=== PATIENT | male | born 1950 | race Caucasian/White ===

== ENCOUNTER 2018-06-18 11:55 | Emergency (ER) | payer SELFPAY ==
[2018-06-18] MEDS: OXYCODONE/ACETAMINOPHEN (10/325) TAB PO (13:42)
== END 2018-06-18 15:16 | disposition home or self-care (01) ==
LOC: FTE 11:55
DX: M25.551 Pain in right hip (principal); F17.210 Nicotine dependence, cigarettes, uncomplicated
CPT/HCPCS: 99283

== ENCOUNTER 2018-07-01 17:19 | Emergency (ER) | payer SELFPAY ==
[2018-07-01] MEDS: HYDROCODONE/APAP (5/325) TAB PO (18:11)
== END 2018-07-01 19:00 | disposition home or self-care (01) ==
LOC: FTE 17:19
DX: M25.551 Pain in right hip (principal); G89.29 Other chronic pain
CPT/HCPCS: 99283

== ENCOUNTER 2018-07-15 12:52 | Emergency (ER) | payer MEDICARE, OTHER ==
[2018-07-15] MEDS: OXYCODONE/ACETAMINOPHEN (10/325) TAB PO ×2 (14:18)
== END 2018-07-15 15:29 | disposition home or self-care (01) ==
LOC: FTE 12:52
DX: M25.551 Pain in right hip (principal)
CPT/HCPCS: 99283

== ENCOUNTER 2019-03-03 16:23 | Emergency (ER) | payer MEDICARE, OTHER ==
[2019-03-03] MEDS: OXYCODONE/ACETAMINOPHEN (10/325) TAB PO (17:34)
== END 2019-03-03 17:39 | disposition home or self-care (01) ==
LOC: FTE 16:23
DX: M25.551 Pain in right hip (principal); Z87.891 Personal history of nicotine dependence
CPT/HCPCS: 99283

== ENCOUNTER 2019-03-05 14:34 | Emergency (ER) | payer MEDICARE ==
[2019-03-05] MEDS: OXYCODONE/ACETAMINOPHEN (10/325) TAB PO (17:12)
== END 2019-03-05 17:57 | disposition home or self-care (01) ==
LOC: FTE 14:34
DX: M25.551 Pain in right hip (principal); F17.210 Nicotine dependence, cigarettes, uncomplicated
CPT/HCPCS: 99283

== ENCOUNTER 2019-03-08 11:52 | Emergency (ER) | payer MEDICARE ==
[2019-03-08] MEDS: OXYCODONE/ACETAMINOPHEN (10/325) TAB PO (13:24)
== END 2019-03-08 14:25 | disposition home or self-care (01) ==
LOC: FTE 14:25
DX: M25.551 Pain in right hip (principal); Z76.0 Encounter for issue of repeat prescription; Z87.891 Personal history of nicotine dependence
CPT/HCPCS: 99283

== ENCOUNTER 2019-03-11 13:33 | Emergency (ER) | payer MEDICARE ==
[2019-03-11] MEDS: OXYCODONE/ACETAMINOPHEN (5/325) TAB PO (14:45)
== END 2019-03-11 15:25 | disposition left against medical advice (07) ==
LOC: FTE 13:33
DX: M25.551 Pain in right hip (principal); F17.210 Nicotine dependence, cigarettes, uncomplicated; Z76.0 Encounter for issue of repeat prescription; Z96.649 Presence of unspecified artificial hip joint
CPT/HCPCS: 99283

== ENCOUNTER 2019-03-14 11:16 | Emergency (ER) | payer MEDICARE | END 2019-03-14 14:23 | disposition left against medical advice (07) | LOC: E/R 11:16 | DX: M25.551 Pain in right hip (principal); G89.4 Chronic pain syndrome; Z87.891 Personal history of nicotine dependence | CPT/HCPCS: 99282 ==

== ENCOUNTER 2019-04-21 17:56 | Emergency (ER) | payer MEDICARE | END 2019-04-21 18:10 | disposition home or self-care (01) | LOC: E/R 17:56 | DX: M25.551 Pain in right hip (principal); G89.29 Other chronic pain; F17.210 Nicotine dependence, cigarettes, uncomplicated; Z76.5 Malingerer [conscious simulation] | CPT/HCPCS: 99283 ==

== ENCOUNTER 2019-06-06 11:39 | Emergency (ER) | payer MEDICARE | END 2019-06-06 13:49 | disposition left against medical advice (07) | LOC: FTE 11:39 | DX: M25.551 Pain in right hip (principal); F17.210 Nicotine dependence, cigarettes, uncomplicated | CPT/HCPCS: 99282 ==